=== PATIENT | male | born 1955 | race Caucasian/White ===

== ENCOUNTER 2017-06-06 20:57 | Inpatient (IN) | payer OTHER, SELFPAY ==
[2017-06-06 20:58] VITALS: BP 135/89; PULSE 127; RESP 18; TEMP 38.3; O2SAT 90; BMI 25.2
--- NOTE | 2017-06-06 21:02 | EKG12_ITS ---
Test Reason : CP Blood Pressure : / mmHG Vent. Rate : 123 BPM Atrial Rate : 123 BPM P-R Int : 120 ms QRS Dur : 070 ms QT Int : 296 ms P-R-T Axes : 084 071 057 degrees QTc Int : 423 ms Sinus tachycardia Otherwise normal ECG Confirmed by TAMIKO HART MD ([id number]), general expeditor MARIA T SAMPSON ([id number] on 06/09/2017 3:01:30 PM Referred By: FRANK Confirmed By:TAMIKO HART MD
--- NOTE | 2017-06-06 22:05 | RAD_ITS ---
STUDY: X-RAY CHEST REASON FOR EXAM: Male, 61 years old. Chest pain TECHNIQUE: Frontal views COMPARISON: March 21, 2016 FINDINGS: The lungs are expanded. Mild mixed interstitial/alveolar infiltrates bilaterally, right more than left Normal size heart. Normal mediastinum and arabella. Normal visualized pulmonary arteries. Normal visualized aortic arch and descending thoracic aorta. Mild degenerative changes of the thoracic spine. Normal visualized ribs, clavicles, and shoulders. There is no demonstrated abnormality of the visualized soft tissue structures of the upper abdomen. RAD/Chest 1 View (Portable) IMPRESSION: Mixed infiltrates bilaterally, right more than left. Electronically Signed: Chay Olea DO at 22:33 EST Tel [phone], Service support ,
[2017-06-06 22:07] VITALS: BP 117/88; PULSE 115; RESP 17; O2SAT 94; O2SAT 95
[2017-06-06 22:23] LABS: Absolute Lymphocyte Count 1.27 X10^3/ul (0.83-4.51); Basophil# 0.04 X10^3/uL; Basophil% 0.3 % (0-1); Differential Indicated SCAN CRITERIA MET; Eosinophil# 0.08 X10^3/uL; Eosinophils% 0.5 % (0-5); Hemoglobin 13.1 g/dl (13.0-16.5); Lymphocyte # 1.27 X10^3/ul (4.0); Lymphocyte % 8.3 % (19-41); Mean Corp Hgb Conc 32.8 g/gl (32-36); Mean Corpuscular Hgb 30.8 pg (27.0-32.0); Mean Corpuscular Volume 93.9 fL (80-94); Mean Platelet Vol. 8.7 fl (6.2-12.0); Monocyte# 1.79 X10^3/uL; Monocyte% 11.8 % (0-10); Neutrophil % 78.8 % (47-70); POSITIVE COUNT NO; POSITIVE DIFFERENTIAL YES; POSITIVE MORPHOLOGY NO; Platelet Count 379 K/mm3 (150-450); RBC Distribution Width CV 13.9 % (11.6-14.6); RBC Distribution Width SD 47.8 fl (35.1-43.9); Red Blood Count 4.26 M/mm3 (4.6-6.2); White Blood Count 15.2 K/mm3 (4.4-11.0)
[2017-06-06 22:40] VITALS: PULSE 118; RESP 20
[2017-06-06] MEDS: Ipratropium/Albuterol Sulfate 3 ML AMPUL.NEB INHALATION (22:40)
[2017-06-06 22:42] LABS: Anisocytosis RARE; Macrocytosis RARE; Platelet Estimate ADEQUATE (ADEQ)
[2017-06-06 22:46] LABS: BUN 12 mg/dL (7-18); BUN/Creat Ratio 14.2 RATIO (10-20); Calcium,Total 8.5 mg/dL (8.5-10.1); Creatinine, Serum 0.84 mg/dL (0.70-1.30); EST Glomerular Filtration Rate 98 mL/min (>60); Est Glom Filt Rate - Afr Amer 118 mL/min (>60); Estimated Creatinine Clearance 77.33 ml/min; Glucose 123 mg/dL (74-106)
[2017-06-06 22:47] LABS: Anion Gap 7 (5-15); Chloride 97 mmol/L (98-107); Potassium 3.2 mmol/L (3.5-5.1); Sodium Level 133 mmol/L (136-145)
[2017-06-06] MEDS: 0.9% Normal Saline 1,000 ML 999 ML IV (22:52)
[2017-06-06] MEDS: Acetaminophen 500 MG Tablet 1000 MG PO (22:52)
[2017-06-06] MEDS: MethylPREDNISolone 125 MG/2 ML Vial IV (22:55)
--- NOTE | 2017-06-06 23:06 | ED.DCSUM_ITS ---
- ER Visit Summary Date of Service: 06/06/17 Chief Complaint: Cough History of Present Illness: The patient is a [address] Lazarus Ribeiro. He reports that he is a cough began approximately 2 weeks ago. Is productive of green/yellow sputum without blood. He reports that he has had subjective fever, chills, and sweats. He reports that he has had mild shortness of breath that is relieved with things inhaler. Patient also reports that he has chest pain on the right side began 2 weeks ago. This is present only when he coughs. Is 3 out of 10 at worst and is pain- free currently. He reports this is similar to when he has had pneumonia in the past. He also has a history of COPD. He is not on home O2. Physical Examination: Vitals: Stable. Afebrile. General: Well-nourished and well-developed. Head: Normocephalic atraumatic. Neck: Supple, no lymphadenopathy. No JVD. Nontender. Cardiovascular: Tachycardic regular rhythm. No murmurs. Respiratory: No respiratory distress. Rhonchi on the right and greatly decreased air movement. Abdominal: Soft, nontender, nondistended, normal bowel sounds. No guarding, rebound, or peritoneal signs. Back: Nontender. Extremities: Nontender, no edema. Skin: Normal color, no rash. Neurologic: Alert and oriented ?3. Cranial nerves II through XII are intact. Normal strength and sensation. Psych: Normal affect. Test Results: EKG is sinus tach at [address] changes. Troponin is negative. CBC is marked for white count of 15.2 with 79 segmented neutrophils, 8 lymphocytes, 12 monocytes. Chem-7 is more for sodium 133, potassium 3.2, chloride 97, glucose of 123. Chest x-ray shows bilateral infiltrates right greater than left. Lactic acid is 1.2. Emergency Department Course and Treatment: Patient had blood cultures obtained. He was given Levaquin IV. He was given albuterol Atrovent aerosols. He was given Solu-Medrol IV. Treatment Plan: The patient was discussed with Dr. Ervin. He will be admitted to the hospital for further evaluation and treatment. Disposition: Admitted in improved condition. Impression: 1. Pneumonia, community-acquired. 2. COPD. 3. Sepsis. This note was generated with Dragon dictation software. It may contain incorrect words, spelling, and punctuation that were not noted in review of the chart prior to signing ED Disposition - Plan for ED Patient: Chief Complaint: Chest Pain
[2017-06-06 23:31] LABS: Lactic Acid 1.2 mmol/L (0.4-2.0)
[2017-06-07] VITALS (22 sets, daily range): BP systolic 117–135; BP diastolic 68–85; PULSE 81–104; RESP 14–30; TEMP 36.6–37.1; O2SAT 90–98; BMI 25.5; BMI 25.6
[2017-06-07] MEDS: 0.9% Normal Saline 1,000 ML 999 ML IV (00:16)
--- NOTE | 2017-06-07 00:20 | PCM.HP.STD ---
Problem List (1) Sepsis Status: Acute (2) Community acquired pneumonia Status: Acute (3) Mixed anxiety and depressive disorder Status: Chronic (4) Nicotine dependence Status: Chronic (5) COPD (chronic obstructive pulmonary disease) Status: Chronic History of Present Illness Date of Admission: 06/07/17 Chief Complaint: Cough, shortness of breath. The patient is a 61 year old M with past medical history as mentioned above presented to the emergency room because of cough and shortness of breath. His symptoms started approximately 2 weeks ago with productive cough with moderate amount of yellow to clear sputum, associated with shortness of breath and subjective fever and without aggravating or relieving factors. Over the last few days, he has been complaining of right side chest pain, sharp pain, comes on when he coughs, aggravated by laying on his right side and without relieving factors. He denied left-sided chest pain, palpitation, dizziness or lightheadedness. In the emergency room, he had a spike of fever, was tachycardic and tachypneic, blood pressure was stable. Pulse ox was 94% on 2 L of oxygen. His routine blood work was remarkable for leukocytosis, hyponatremia and hypokalemia. His EKG revealed normal sinus rhythm, normal [place] interval, normal QRS and normal QTC without evidence of acute ischemic changes. His troponin was negative. Lactic acid was normal. Chest x-ray revealed bilateral infiltrate, more on the right lung. He is being admitted for bilateral community-acquired pneumonia with sepsis as well as mild hyponatremia and hypokalemia. Past Medical History Past Medical History (Chronic Problems): Chronic Problems Mixed anxiety and depressive disorder (Chronic) Nicotine dependence (Chronic) COPD (chronic obstructive pulmonary disease) (Chronic) Allergies No Known Allergies Allergy (Verified 06/06/17 21:02) Home Medications: Ambulatory Orders Medication Instructions Recorded NK [NK] 06/06/17 Surgical History: arthroscopy, knee, herniorrhaphy, tonsillectomy, - Psychiatric History: Depression Lives: Spouse/ Significant Other Smoking Status: Former smoker Alcohol: None Drugs: None - *Family History Maternal History Items: No pertinent history Paternal History Items: No pertinent history Review of Systems Constitutional: Reports: Fever. Denies: Anorexia, Chills, Weakness Eyes: Denies: Blurred vision, Double vision, Drainage, Pain, Redness HEENT: Denies: Difficulty Hearing, Ear Pain, Eye Pain, Nasal Congestion, Sore Throat Cardiovascular: Reports: Chest Pain. Denies: Chest Pressure, Chest Tightness, Heaviness, Light Headedness, Orthopnea, Palpitations, Paroxysmal Noc. Dyspnea, Syncope Respiratory: Reports: Cough, Pleuritic Pain, Shortness of Breath, Sputum production. Denies: Hemoptysis, Wheezing Gastrointestinal: Denies: Abdominal Pain, Constipation, Diarrhea, Nausea, Vomiting Genitourinary: Denies: Dysuria, Frequency, Hematuria Musculoskeletal: Denies: Arm Pain, Back Pain, Foot Pain Skin: Denies: Dryness, Rash Neurological: Denies: Balance problems, Double vision, Change in Speech, Slurred speech, Focal weakness, Headaches, Incoordination Psychiatric: Reports: Depression. Denies: Anxiety Endocrine: Denies: Change in Body Habitus, Polydipsia VTE Information - Inpt Only VTE Present on Admission: No VTE Mechan Device Prophylaxis: None VTE Pharm Prophylaxis ordered?: Yes Patient Problems: Active and Suspected Problems Sepsis (Acute) Community acquired pneumonia (Acute) - Physical Exam General: Alert, Oriented x3, Cooperative, - - He is mildly short of breath. HEENT: Atraumatic, PERRLA, EOMI Oral: Moist Mucosa, No Gingival or Mucosal Lesions/ Ulcerations Neck: Supple, No JVD, Negative Carotid Bruits, Trachea Midline, Thyroid Normal Size and Texture Lungs: No wheeze, Diminished, Rhonchi, Short of Breath, - - Decreased breath sounds bilaterally, more at the bases, faint crackles. Cardiovascular: Regular rate, Regular Rhythm, Normal S1, Normal S2, PMI Normal, Tachycardic Abdomen: Bowel Sounds Present, Soft, Non Tender, Non-Distended, No Hepato-splenomegaly Extremities: No clubbing, No cyanosis, No edema Skin: No rashes, No breakdown Lymphatic: No Cervical, Supraclavicular, or Inguinal Adenopathy Neurological: Cranial nerves II-XII grossly intact, Motor Exam 5/5 strength throughout Psych/Mental Status: Normal Affect, Appropriate, Alert and oriented to time, place, person, mood and affect Vital Signs Temp Pulse Resp BP Pulse Ox 98.4 F 102 H 30 H 126/80 H 94 06/07/17 00:16 06/07/17 00:14 06/07/17 00:14 06/07/17 00:14 06/07/17 00:14 Oxygen Flow Rate (L/min) 2 Oxygen Delivery Method Nasal Cannula Microbiology 06/06/17 22:45 Influenza Types A,B Direct FA (NATALIA) - Final Mucosa - Nose Laboratory Tests 06/06/17 06/06/17 06/06/17 Range/Units 22:45 22:02 22:02 WBC 15.2 H (4.4-11.0) K/mm3 RBC 4.26 L (4.6-6.2) M/mm3 Hgb 13.1 (13.0-16.5) g/dl Hct 40.0 (40-54) % MCV 93.9 (80-94) fL MCH 30.8 (27.0-32.0) pg MCHC 32.8 (32-36) g/gl RDW 13.9 (11.6-14.6) % RDW Differential 47.8 H (35.1-43.9) fl Plt Count 379 (150-450) K/mm3 MPV 8.7 (6.2-12.0) fl Immature Gran % (Auto) 0.300 (0.0-0.9) % Neut % (Auto) 78.8 H (47-70) % Lymph % (Auto) 8.3 L (19-41) % Emanuel % (Auto) 11.8 H (0-10) % Eos % (Auto) 0.5 (0-5) % Baso % (Auto) 0.3 (0-1) % Absolute Neuts (auto) 12.0 H (2.0-7.7) X10^3/uL Absolute Lymphs (auto) 1.27 (0.83-4.51) X10^3/ul Total Counted Not Reportable Differential Comment SEE COMMENT Diff Path Review May foll Platelet Estimate ADEQUATE (ADEQ) Anisocytosis RARE Macrocytosis RARE Sodium 133 L (136-145) mmol/L Potassium 3.2 L (3.5-5.1) mmol/L Chloride 97 L (98-107) mmol/L Carbon Dioxide 29.0 (21.0-32.0) mmol/L Anion Gap 7 (5-15) BUN 12 (7-18) mg/dL Creatinine 0.84 (0.70-1.30) mg/dL Estim Creat Clear Calc 77.33 ml/min Est GFR (MDRD) Af Amer 118 (>60) mL/min Est GFR (MDRD) Non-Af 98 (>60) mL/min BUN/Creatinine Ratio 14.2 (10-20) RATIO Glucose 123 H (74-106) mg/dL Lactic Acid 1.2 (0.4-2.0) mmol/L Calcium 8.5 (8.5-10.1) mg/dL Troponin I < 0.02 (<0.06) ng/mL Clinical Impression(s) from Imaging Studies Chest X-Ray 06/06/17 22:05 IMPRESSION: Mixed infiltrates bilaterally, right more than left. Electronically Signed: Chay Olea DO at 22:33 EST Tel [phone], Service support , Assessment/Plan Active and Suspected Problems Sepsis (Acute) Community acquired pneumonia (Acute) This is a 61 years old male patient presented to the emergency room because of productive cough and shortness of breath as well as subjective fever and he was found to have bilateral infiltrate on chest x-ray consistent with bilateral community-acquired pneumonia with sepsis. #1 acute bilateral bacterial community-acquired pneumonia/sepsis: Chest x-ray reviewed. Lactic acid was normal. Plan: Admit to PCU, cardiac monitoring, blood culture, sputum culture, urinalysis, urine culture, pneumococcal and Legionella antigen, IV Levaquin for pneumonia, IV fluids, mucolytics, incentive spirometer, bronchodilators, Tylenol as needed. #2 hyponatremia/hypokalemia: Likely because of dehydration and infection. Plan to replace both sodium and potassium with IV fluids with normal saline and addition of potassium chloride, repeat BMP tomorrow morning. #3 COPD: DuoNeb every 6 hours, albuterol as needed, antitussives, oxygen by nasal cannula to keep O2 saturation more than 92%. #4 anxiety/depression: Stable, not on medications at this time. #5 DVT prophylaxis: Subcu Lovenox. This note was generated with [employer] software. It may contain incorrect words, spelling, and punctuation that were not noted in checking the note before signing. Code Visit Inpatient E&M: 82012 Init Hosp L3
--- NOTE | 2017-06-07 00:26 | HP.PCM_ITS ---
Problem List (1) Sepsis Status: Acute (2) Community acquired pneumonia Status: Acute (3) Mixed anxiety and depressive disorder Status: Chronic (4) Nicotine dependence Status: Chronic (5) COPD (chronic obstructive pulmonary disease) Status: Chronic History of Present Illness Date of Admission: 06/07/17 Chief Complaint: Cough, shortness of breath. The patient is a 61 year old M with past medical history as mentioned above presented to the emergency room because of cough and shortness of breath. His symptoms started approximately 2 weeks ago with productive cough with moderate amount of yellow to clear sputum, associated with shortness of breath and subjective fever and without aggravating or relieving factors. Over the last few days, he has been complaining of right side chest pain, sharp pain, comes on when he coughs, aggravated by laying on his right side and without relieving factors. He denied left-sided chest pain, palpitation, dizziness or lightheadedness. In the emergency room, he had a spike of fever, was tachycardic and tachypneic, blood pressure was stable. Pulse ox was 94% on 2 L of oxygen. His routine blood work was remarkable for leukocytosis, hyponatremia and hypokalemia. His EKG revealed normal sinus rhythm, normal [place] interval, normal QRS and normal QTC without evidence of acute ischemic changes. His troponin was negative. Lactic acid was normal. Chest x-ray revealed bilateral infiltrate, more on the right lung. He is being admitted for bilateral community-acquired pneumonia with sepsis as well as mild hyponatremia and hypokalemia. Past Medical History Past Medical History (Chronic Problems): Chronic Problems Mixed anxiety and depressive disorder (Chronic) Nicotine dependence (Chronic) COPD (chronic obstructive pulmonary disease) (Chronic) Allergies No Known Allergies Allergy (Verified 06/06/17 21:02) Home Medications: Ambulatory Orders Medication Instructions Recorded NK [NK] 06/06/17 Surgical History: arthroscopy, knee, herniorrhaphy, tonsillectomy, - Psychiatric History: Depression Lives: Spouse/ Significant Other Smoking Status: Former smoker Alcohol: None Drugs: None - *Family History Maternal History Items: No pertinent history Paternal History Items: No pertinent history Review of Systems Constitutional: Reports: Fever. Denies: Anorexia, Chills, Weakness Eyes: Denies: Blurred vision, Double vision, Drainage, Pain, Redness HEENT: Denies: Difficulty Hearing, Ear Pain, Eye Pain, Nasal Congestion, Sore Throat Cardiovascular: Reports: Chest Pain. Denies: Chest Pressure, Chest Tightness, Heaviness, Light Headedness, Orthopnea, Palpitations, Paroxysmal Noc. Dyspnea, Syncope Respiratory: Reports: Cough, Pleuritic Pain, Shortness of Breath, Sputum production. Denies: Hemoptysis, Wheezing Gastrointestinal: Denies: Abdominal Pain, Constipation, Diarrhea, Nausea, Vomiting Genitourinary: Denies: Dysuria, Frequency, Hematuria Musculoskeletal: Denies: Arm Pain, Back Pain, Foot Pain Skin: Denies: Dryness, Rash Neurological: Denies: Balance problems, Double vision, Change in Speech, Slurred speech, Focal weakness, Headaches, Incoordination Psychiatric: Reports: Depression. Denies: Anxiety Endocrine: Denies: Change in Body Habitus, Polydipsia VTE Information - Inpt Only VTE Present on Admission: No VTE Mechan Device Prophylaxis: None VTE Pharm Prophylaxis ordered?: Yes Patient Problems: Active and Suspected Problems Sepsis (Acute) Community acquired pneumonia (Acute) - Physical Exam General: Alert, Oriented x3, Cooperative, - - He is mildly short of breath. HEENT: Atraumatic, PERRLA, EOMI Oral: Moist Mucosa, No Gingival or Mucosal Lesions/ Ulcerations Neck: Supple, No JVD, Negative Carotid Bruits, Trachea Midline, Thyroid Normal Size and Texture Lungs: No wheeze, Diminished, Rhonchi, Short of Breath, - - Decreased breath sounds bilaterally, more at the bases, faint crackles. Cardiovascular: Regular rate, Regular Rhythm, Normal S1, Normal S2, PMI Normal, Tachycardic Abdomen: Bowel Sounds Present, Soft, Non Tender, Non-Distended, No Hepato- splenomegaly Extremities: No clubbing, No cyanosis, No edema Skin: No rashes, No breakdown Lymphatic: No Cervical, Supraclavicular, or Inguinal Adenopathy Neurological: Cranial nerves II-XII grossly intact, Motor Exam 5/5 strength throughout Psych/Mental Status: Normal Affect, Appropriate, Alert and oriented to time, place, person, mood and affect Vital Signs Temp Pulse Resp BP Pulse Ox 98.4 F 102 H 30 H 126/80 H 94 06/07/17 00:16 06/07/17 00:14 06/07/17 00:14 06/07/17 00:14 06/07/17 00:14 Oxygen Flow Rate (L/min) 2 Oxygen Delivery Method Nasal Cannula Microbiology 06/06/17 22:45 Influenza Types A,B Direct FA (NATALIA) - Final Mucosa - Nose Laboratory Tests 3 06/06/17 06/06/17 06/06/17 Range/Units 22:45 22:02 22:02 WBC 15.2 H (4.4-11.0) K/mm3 RBC 4.26 L (4.6-6.2) M/mm3 Hgb 13.1 (13.0-16.5) g/dl Hct 40.0 (40-54) % MCV 93.9 (80-94) fL MCH 30.8 (27.0-32.0) pg MCHC 32.8 (32-36) g/gl RDW 13.9 (11.6-14.6) % RDW Differential 47.8 H (35.1-43.9) fl Plt Count 379 (150-450) K/mm3 MPV 8.7 (6.2-12.0) fl Immature Gran % (Auto) 0.300 (0.0-0.9) % Neut % (Auto) 78.8 H (47-70) % Lymph % (Auto) 8.3 L (19-41) % [place] % (Auto) 11.8 H (0-10) % Eos % (Auto) 0.5 (0-5) % Baso % (Auto) 0.3 (0-1) % Absolute Neuts (auto) 12.0 H (2.0-7.7) X10^3/uL Absolute Lymphs (auto) 1.27 (0.83-4.51) X10^3/ul Total Counted Not Reportable Differential Comment SEE COMMENT Diff Path Review May foll Platelet Estimate ADEQUATE (ADEQ) Anisocytosis RARE Macrocytosis RARE Sodium 133 L (136-145) mmol/L Potassium 3.2 L (3.5-5.1) mmol/L Chloride 97 L (98-107) mmol/L Carbon Dioxide 29.0 (21.0-32.0) mmol/L Anion Gap 7 (5-15) BUN 12 (7-18) mg/dL Creatinine 0.84 (0.70-1.30) mg/dL Estim Creat Clear Calc 77.33 ml/min Est GFR (MDRD) Af Amer 118 (>60) mL/min Est GFR (MDRD) Non-Af 98 (>60) mL/min BUN/Creatinine Ratio 14.2 (10-20) RATIO Glucose 123 H (74-106) mg/dL Lactic Acid 1.2 (0.4-2.0) mmol/L Calcium 8.5 (8.5-10.1) mg/dL Troponin I < 0.02 (<0.06) ng/mL Clinical Impression(s) from Imaging Studies Chest X-Ray 06/06/17 22:05 IMPRESSION: Mixed infiltrates bilaterally, right more than left. Electronically Signed: Chay Olea DO at 22:33 EST Tel [phone], Service support , Assessment/Plan Active and Suspected Problems Sepsis (Acute) Community acquired pneumonia (Acute) This is a 61 years old male patient presented to the emergency room because of productive cough and shortness of breath as well as subjective fever and he was found to have bilateral infiltrate on chest x-ray consistent with bilateral community-acquired pneumonia with sepsis. #1 acute bilateral bacterial community-acquired pneumonia/sepsis: Chest x-ray reviewed. Lactic acid was normal. Plan: Admit to PCU, cardiac monitoring, blood culture, sputum culture, urinalysis, urine culture, pneumococcal and Legionella antigen, IV Levaquin for pneumonia, IV fluids, mucolytics, incentive spirometer, bronchodilators, Tylenol as needed. #2 hyponatremia/hypokalemia: Likely because of dehydration and infection. Plan to replace both sodium and potassium with IV fluids with normal saline and addition of potassium chloride, repeat BMP tomorrow morning. #3 COPD: DuoNeb every 6 hours, albuterol as needed, antitussives, oxygen by nasal cannula to keep O2 saturation more than 92%. #4 anxiety/depression: Stable, not on medications at this time. #5 DVT prophylaxis: Subcu Lovenox. This note was generated with [employer] software. It may contain incorrect words, spelling, and punctuation that were not noted in checking the note before signing. Code Visit Inpatient E&M: 07025 Init Hosp L3
[2017-06-07 02:38] LABS: Anion Gap 9 (5-15); BUN 12 mg/dL (7-18); BUN/Creat Ratio 15.5 RATIO (10-20); Calcium,Total 7.9 mg/dL (8.5-10.1); Chloride 101 mmol/L (98-107); Creatinine, Serum 0.78 mg/dL (0.70-1.30); EST Glomerular Filtration Rate 108 mL/min (>60); Est Glom Filt Rate - Afr Amer 131 mL/min (>60); Estimated Creatinine Clearance 80.04 ml/min; Glucose 163 mg/dL (74-106); Potassium 3.2 mmol/L (3.5-5.1); Sodium Level 137 mmol/L (136-145)
[2017-06-07 02:45] LABS: Absolute Lymphocyte Count 0.54 X10^3/ul (0.83-4.51); Absolute Neutrophil Count 13.3 X10^3/uL (2.0-7.7); Basophil# 0.04 X10^3/uL; Basophil% 0.3 % (0-1); Eosinophil# 0.01 X10^3/uL; Eosinophils% 0.1 % (0-5); Hematocrit 38.8 % (40-54); Hemoglobin 12.9 g/dl (13.0-16.5); Lymphocyte # 0.54 X10^3/ul (4.0); Lymphocyte % 3.8 % (19-41); Mean Corp Hgb Conc 33.2 g/gl (32-36); Mean Corpuscular Hgb 31.4 pg (27.0-32.0); Mean Corpuscular Volume 94.4 fL (80-94); Mean Platelet Vol. 8.5 fl (6.2-12.0); Monocyte# 0.41 X10^3/uL; Monocyte% 2.9 % (0-10); Neutrophil # 13.27 X10^3/uL (2.7-7.7); Neutrophil % 92.6 % (47-70); Platelet Count 389 K/mm3 (150-450); RBC Distribution Width CV 13.8 % (11.6-14.6); RBC Distribution Width SD 46.4 fl (35.1-43.9); Red Blood Count 4.11 M/mm3 (4.6-6.2); White Blood Count 14.3 K/mm3 (4.4-11.0)
[2017-06-07 02:52] LABS: Differential Indicated SCAN CRITERIA MET; POSITIVE COUNT NO; POSITIVE DIFFERENTIAL YES; POSITIVE MORPHOLOGY YES
[2017-06-07 03:50] LABS: Color, Urine Yellow (Yellow); Glucose, Dipstick Normal (Normal); Ketone-Dipstick 5 mg/dl (Negative); Leukocyte Esterase-Dipstick 500 /ul (Negative); Nitrite-Dipstick Negative (Negative); Occult Blood-Urine 25 /ul (Negative); Protein-Dipstick 30 mg/dl (Negative); Urine Bilirubin Dipstick Negative (Negative); Urine Clarity Sl. Cloudy (Clear); Urine Urobilinogen 1 mg/dl (Normal)
[2017-06-07 03:54] LABS: Atypical Lymphocyte RARE %; Differential Comment SCANNED
[2017-06-07] MEDS: Ipratropium/Albuterol Sulfate 3 ML AMPUL.NEB INHALATION ×3 (06:55→18:55)
[2017-06-07] MEDS: guaiFENesin 1,200 MG Tablet 1200 MG PO ×2 (09:36→22:11)
--- NOTE | 2017-06-07 15:29 | PCM.PN.HOSP ---
Patient Problems: Active and Suspected Problems Sepsis (Acute) Community acquired pneumonia (Acute) Subjective: Patient was seen and examined. Denies fever or chills or SOB. No acute events overnight. Objective: Physical Exam General: Alert, Oriented x3, Cooperative, no distress HEENT: Atraumatic, PERRLA, EOMI Oral: Moist Mucosa, No Gingival or Mucosal Lesions/ Ulcerations Neck: Supple, No JVD, Negative Carotid Bruits, Trachea Midline, Thyroid Normal Size and Texture Lungs: No wheeze, Diminished, Rhonchi, Short of Breath, - Decreased breath sounds bilaterally, more at the bases, faint crackles. Cardiovascular: Regular rate, Regular Rhythm, Normal S1, Normal S2, PMI Normal, Tachycardic Abdomen: Bowel Sounds Present, Soft, Non Tender, Non-Distended, No Hepato-splenomegaly Extremities: No edema Skin: No rashes, No breakdown Lymphatic: No Cervical, Supraclavicular, or Inguinal Adenopathy Neurological: Cranial nerves II-XII grossly intact, Motor Exam 5/5 strength throughout Psych/Mental Status: Normal Affect, Appropriate, Alert and oriented to time, place, person, mood and affect Vitals/I&O's: Vital Signs Temp Pulse Resp BP Pulse Ox 98.8 F 98 16 119/68 95 06/07/17 09:36 06/07/17 15:01 06/07/17 12:50 06/07/17 09:36 06/07/17 09:36 Oxygen Flow Rate (L/min) 2 Oxygen Delivery Method Room Air Weight: 65.5 kg Body Mass Index (BMI) 25.5 Intake and Output for Last 24 Hours 06/05/17 06/06/17 06/07/17 23:59 23:59 23:59 Intake Total 1326 / 1326 Balance 1326 / 1326 Microbiology Past 72 Hours 06/07/17 02:43 Urine, Clean Catch Urine Culture - Preliminary Culture exhibits no growth. 06/07/17 02:43 Interface Orders Streptococcus pneumoniae Antigen (M - Final 06/07/17 02:43 Interface Orders Legionella Antigen - Final Laboratory Results 06/07/17 01:48: Sodium 137, Potassium 3.2 L, Chloride 101, Carbon Dioxide 27.0, Anion Gap 9, BUN 12, Creatinine 0.78, Estim Creat Clear Calc 80.04, Est GFR (MDRD) Af Amer 131, Est GFR (MDRD) Non-Af 108, BUN/Creatinine Ratio 15.5, Glucose 163 H, Calcium 7.9 L 06/07/17 01:48: WBC 14.3 H, RBC 4.11 L, Hgb 12.9 L, Hct 38.8 L, MCV 94.4 H, MCH 31.4, MCHC 33.2, RDW 13.8, RDW Differential 46.4 H, Plt Count 389, MPV 8.5, Immature Gran % (Auto) 0.300, Neut % (Auto) 92.6 H, Lymph % (Auto) 3.8 L, Clarke % (Auto) 2.9, Eos % (Auto) 0.1, Baso % (Auto) 0.3, Absolute Neuts (auto) 13.3 H, Absolute Lymphs (auto) 0.54 L, Total Counted Not Reportable, Differential Comment SCANNED, Atypical Lymphocytes RARE 06/07/17 01:48: Troponin I < 0.02 06/07/17 02:43: Urine Color Yellow, Urine Clarity Sl. Cloudy, Urine pH 6.0, Ur Specific [place] 1.020, Urine Protein 30 H, Urine Glucose (UA) Normal, Urine Ketones 5 H, Urine Occult Blood 25 H, Urine Nitrite Negative, Urine Bilirubin Negative, Urine Urobilinogen 1 H, Ur Leukocyte Esterase 500 H 06/07/17 05:35: Troponin I < 0.02 06/07/17 12:02: Troponin I < 0.02 Current Medications Acetaminophen (Tylenol) 650 mg PO Q6H PRN PRN PRN Reason: FEVER Albuterol Sulfate (Ventolin Aerosols) 2.5 mg INHALATION Q2H PRN PRN PRN Reason: SHORTNESS OF BREATH Albuterol/Ipratropium (Duoneb) 3 ml INHALATION Q6H.RT [facility] Last Admin: 06/07/17 12:50 Dose: 3 ml Enoxaparin Sodium (Lovenox) 40 mg SC DAILY@1000 [facility] Last Admin: 06/07/17 09:36 Dose: Not Given Guaifenesin (Mucinex) 1,200 mg PO BID [facility] Last Admin: 06/07/17 09:36 Dose: 1,200 mg Potassium Chloride/Sodium Chloride () 1,000 mls @ 100 mls/hr IV .Q10H [facility] Last Admin: 06/07/17 11:22 Dose: 100 mls/hr Levofloxacin (Levaquin) 750 mg in 150 mls @ 100 mls/hr IV Q24 [facility] Last Admin: 06/07/17 09:35 Dose: 100 mls/hr Magnesium Hydroxide (Milk Of Magnesia) 30 ml PO DAILY PRN PRN PRN Reason: Constipation Ondansetron HCl (Zofran) 4 mg IV Q8H PRN PRN PRN Reason: NAUSEA Sodium Chloride () 5 - 30 ml IV UD PRN PRN Reason: SALINE FLUSH Assessment/Plan Active and Suspected Problems Sepsis (Acute) Community acquired pneumonia (Acute) 61 years old male patient admitted with productive cough, shortness of breath, fever and found to have bilateral infiltrate on chest x-ray consistent with bilateral community-acquired pneumonia with sepsis. 1. Sepsis secondary to acute bilateral bacterial community-acquired pneumonia, improved, continue on IV Levaquin ncentive spirometer, bronchodilators, Tylenol as needed. 2. Acute hyponatremia secondary to fluid shifts, resolved. 3. Hypokalemia, replaced, recheck in am. 4. COPD, no signs of acute exacerbation 5. Anxiety/depression: Stable, 6. DVT prophylaxis -Lovenox SC. Code Visit Inpatient E&M: 90419 Subs Hosp L2
--- NOTE | 2017-06-07 15:36 | PN_ITS ---
Patient Problems: Active and Suspected Problems Sepsis (Acute) Community acquired pneumonia (Acute) Subjective: Patient was seen and examined. Denies fever or chills or SOB. No acute events overnight. Objective: Physical Exam General: Alert, Oriented x3, Cooperative, no distress HEENT: Atraumatic, PERRLA, EOMI Oral: Moist Mucosa, No Gingival or Mucosal Lesions/ Ulcerations Neck: Supple, No JVD, Negative Carotid Bruits, Trachea Midline, Thyroid Normal Size and Texture Lungs: No wheeze, Diminished, Rhonchi, Short of Breath, - Decreased breath sounds bilaterally, more at the bases, faint crackles. Cardiovascular: Regular rate, Regular Rhythm, Normal S1, Normal S2, PMI Normal, Tachycardic Abdomen: Bowel Sounds Present, Soft, Non Tender, Non-Distended, No Hepato- splenomegaly Extremities: No edema Skin: No rashes, No breakdown Lymphatic: No Cervical, Supraclavicular, or Inguinal Adenopathy Neurological: Cranial nerves II-XII grossly intact, Motor Exam 5/5 strength throughout Psych/Mental Status: Normal Affect, Appropriate, Alert and oriented to time, place, person, mood and affect Vitals/I&O's: Vital Signs Temp Pulse Resp BP Pulse Ox 98.8 F 98 16 119/68 95 06/07/17 09:36 06/07/17 15:01 06/07/17 12:50 06/07/17 09:36 06/07/17 09:36 Oxygen Flow Rate (L/min) 2 Oxygen Delivery Method Room Air Weight: 65.5 kg Body Mass Index (BMI) 25.5 Intake and Output for Last 24 Hours 06/05/17 06/06/17 06/07/17 23:59 23:59 23:59 Intake Total 1326 / 1326 Balance 1326 / 1326 Microbiology Past 72 Hours 06/07/17 02:43 Urine, Clean Catch Urine Culture - Preliminary Culture exhibits no growth. 06/07/17 02:43 Interface Orders Streptococcus pneumoniae Antigen (M - Final 06/07/17 02:43 Interface Orders Legionella Antigen - Final Laboratory Results 06/07/17 01:48: Sodium 137, Potassium 3.2 L, Chloride 101, Carbon Dioxide 27.0, Anion Gap 9, BUN 12, Creatinine 0.78, Estim Creat Clear Calc 80.04, Est GFR ( MDRD) Af Amer 131, Est GFR (MDRD) Non-Af 108, BUN/Creatinine Ratio 15.5, Glucose 163 H, Calcium 7.9 L 06/07/17 01:48: WBC 14.3 H, RBC 4.11 L, Hgb 12.9 L, Hct 38.8 L, MCV 94.4 H, MCH 31.4, MCHC 33.2, RDW 13.8, RDW Differential 46.4 H, Plt Count 389, MPV 8.5, Immature Gran % (Auto) 0.300, Neut % (Auto) 92.6 H, Lymph % (Auto) 3.8 L, [place] % (Auto) 2.9, Eos % (Auto) 0.1, Baso % (Auto) 0.3, Absolute Neuts (auto) 13.3 H , Absolute Lymphs (auto) 0.54 L, Total Counted Not Reportable, Differential Comment SCANNED, Atypical Lymphocytes RARE 06/07/17 01:48: Troponin I < 0.02 06/07/17 02:43: Urine Color Yellow, Urine Clarity Sl. Cloudy, Urine pH 6.0, Ur Specific Spencer 1.020, Urine Protein 30 H, Urine Glucose (UA) Normal, Urine Ketones 5 H, Urine Occult Blood 25 H, Urine Nitrite Negative, Urine Bilirubin Negative, Urine Urobilinogen 1 H, Ur Leukocyte Esterase 500 H 06/07/17 05:35: Troponin I < 0.02 06/07/17 12:02: Troponin I < 0.02 Current Medications Acetaminophen (Tylenol) 650 mg PO Q6H PRN PRN PRN Reason: FEVER Albuterol Sulfate (Ventolin Aerosols) 2.5 mg INHALATION Q2H PRN PRN PRN Reason: SHORTNESS OF BREATH Albuterol/Ipratropium (Duoneb) 3 ml INHALATION Q6H.RT [facility] Last Admin: 06/07/17 12:50 Dose: 3 ml Enoxaparin Sodium (Lovenox) 40 mg SC DAILY@1000 [facility] Last Admin: 06/07/17 09:36 Dose: Not Given Guaifenesin (Mucinex) 1,200 mg PO BID [facility] Last Admin: 06/07/17 09:36 Dose: 1,200 mg Potassium Chloride/Sodium Chloride () 1,000 mls @ 100 mls/hr IV .Q10H [facility] Last Admin: 06/07/17 11:22 Dose: 100 mls/hr Levofloxacin (Levaquin) 750 mg in 150 mls @ 100 mls/hr IV Q24 [facility] Last Admin: 06/07/17 09:35 Dose: 100 mls/hr Magnesium Hydroxide (Milk Of Magnesia) 30 ml PO DAILY PRN PRN PRN Reason: Constipation Ondansetron HCl (Zofran) 4 mg IV Q8H PRN PRN PRN Reason: NAUSEA Sodium Chloride () 5 - 30 ml IV UD PRN PRN Reason: SALINE FLUSH Assessment/Plan Active and Suspected Problems Sepsis (Acute) Community acquired pneumonia (Acute) 61 years old male patient admitted with productive cough, shortness of breath, fever and found to have bilateral infiltrate on chest x-ray consistent with bilateral community-acquired pneumonia with sepsis. 1. Sepsis secondary to acute bilateral bacterial community-acquired pneumonia, improved, continue on IV Levaquin ncentive spirometer, bronchodilators, Tylenol as needed. 2. Acute hyponatremia secondary to fluid shifts, resolved. 3. Hypokalemia, replaced, recheck in am. 4. COPD, no signs of acute exacerbation 5. Anxiety/depression: Stable, 6. DVT prophylaxis -Lovenox SC. Code Visit Inpatient E&M: 70527 Subs Hosp L2
--- NOTE | 2017-06-07 16:16 | CASEMGMT ---
Face to Face with patient for initial transition planning/care coordination assessment. REMA AKHTAR introduced self and role at [facility], pt voices understanding and consents to assessment at this time. Pt sitting up in bed in no distress at this time. Pt A/O x4 at this time and answers all questions appropriately at this time. Care providers, pharmacy, and demographics verified. See attached link. Pt voices no further concerns/needs at this time. Advised pt to ask for CM if any further questions/concerns/needs arise, voices understanding. PLAN: [place] REMA AKHTAR
[2017-06-08] VITALS (8 sets, daily range): BP systolic 120–125; BP diastolic 70–78; PULSE 89–110; RESP 16–20; TEMP 36.3–36.4; O2SAT 94–97
[2017-06-08] MEDS: Ipratropium/Albuterol Sulfate 3 ML AMPUL.NEB INHALATION ×2 (00:22→06:53)
[2017-06-08 09:13] LABS: Pathologist Review Reviewed
[2017-06-08] MEDS: guaiFENesin 1,200 MG Tablet 1200 MG PO (10:15)
--- NOTE | 2017-06-08 10:59 | PCM.DC ---
- Discharge Diagnoses Current Active Problems: Current Active and Chronic Problems Sepsis (Acute) Community acquired pneumonia (Acute) Reason(s) for Visit for Discharge Instructions: Cough, Shortness of breath You will use the following diet at home:: Regular Your food should be the consistency of: Regular Your liquids should be the consistency of: Regular/Thin Discharge Activity: Return to Normal Activity Allergies/Adverse Reactions: Allergies No Known Allergies Allergy (Verified 06/06/17 21:02) Medications to take at Discharge Guaifenesin [Mucinex] 1,200 mg PO BID #14 tab 06/08/17 Levofloxacin [Levaquin] 750 mg PO DAILY #5 tab 06/08/17 The following prescriptions were given: Levofloxacin [Levaquin] 750 mg PO DAILY #5 tab Guaifenesin [Mucinex] 1,200 mg PO BID #14 tab Primary Care Physician: Lazarus Ribeiro MD [Primary Care Provider] - Please follow up with your Primary Care Physician in: within 2 weeks Proposed Discharge Date: 06/08/17
--- NOTE | 2017-06-08 11:02 | DS.PCM_ITS ---
Discharge Date and Diagnosis Date of Admission: 06/07/17 Date of Discharge: 06/08/17 - Primary Discharge Diagnosis Active and Suspected Problems Sepsis (Acute) Community acquired pneumonia (Acute) - Secondary Discharge Diagnosis Chronic Problems Mixed anxiety and depressive disorder (Chronic) Nicotine dependence (Chronic) COPD (chronic obstructive pulmonary disease) (Chronic) Hospital Course and Treatment Imaging Results: Clinical Impression(s) from Imaging Studies Chest X-Ray 06/06/17 22:05 IMPRESSION: Mixed infiltrates bilaterally, right more than left. Electronically Signed: Chay Olea DO at 22:33 EST Tel [phone], Service support , None Operations: None Procedures: None Summary of Care Provided: 61 years old male patient with chronic nicotine use disorder admitted with productive cough, shortness of breath, fever and found to have bilateral infiltrate on chest x-ray consistent with bilateral community-acquired pneumonia with sepsis. Active management was as follows: 1. Sepsis secondary to acute bilateral bacterial community-acquired pneumonia, managed on IV Levaquin, discharged on po levaquin to complete 1 week 2. Acute hyponatremia secondary to fluid shifts, resolved. 3. Hypokalemia, resolved 4. COPD, stable , no exacerbation seen in the admission 5. Anxiety/depression Discharge Diet: No Restrictions Discharge Activity: Return to Normal Activity Home Medications: Medications to take at Discharge Guaifenesin [Mucinex] 1,200 mg PO BID #14 tab 06/08/17 Levofloxacin [Levaquin] 750 mg PO DAILY #5 tab 06/08/17 Following Prescrptions Were Given to Patient: Levofloxacin [Levaquin] 750 mg PO DAILY #5 tab Guaifenesin [Mucinex] 1,200 mg PO BID #14 tab Primary Care Physician: Lazarus Ribeiro MD [Primary Care Provider] - Please follow up with your Primary Care Physician in: within 2 weeks Disposition: Home Minutes spent on discharge:: 25 Patient Condition:: Stable Meaningful Use Info Meaningful Use Diagnoses (Choose all that apply): None applicable Code Visit Inpatient E&M: 84241 Disch Hosp
[2017-06-08 11:42] LABS: Absolute Lymphocyte Count 2.13 X10^3/ul (0.83-4.51); Absolute Neutrophil Count 14.1 X10^3/uL (2.0-7.7); Basophil# 0.15 X10^3/uL; Basophil% 0.8 % (0-1); Eosinophil# 0.02 X10^3/uL; Eosinophils% 0.1 % (0-5); Hematocrit 37.6 % (40-54); Lymphocyte # 2.13 X10^3/ul (4.0); Mean Corp Hgb Conc 31.9 g/gl (32-36); Mean Corpuscular Volume 97.2 fL (80-94); Mean Platelet Vol. 8.5 fl (6.2-12.0); Monocyte# 1.32 X10^3/uL; Monocyte% 7.4 % (0-10); Neutrophil # 14.06 X10^3/uL (2.7-7.7); Neutrophil % 79.2 % (47-70); Platelet Count 456 K/mm3 (150-450); RBC Distribution Width CV 14.4 % (11.6-14.6); RBC Distribution Width SD 49.5 fl (35.1-43.9); Red Blood Count 3.87 M/mm3 (4.6-6.2); White Blood Count 17.8 K/mm3 (4.4-11.0)
[2017-06-08 11:45] LABS: Differential Indicated SCAN CRITERIA MET; POSITIVE COUNT NO; POSITIVE DIFFERENTIAL NO; POSITIVE MORPHOLOGY YES
[2017-06-08 11:50] LABS: BUN 11 mg/dL (7-18); Estimated Creatinine Clearance 89.19 ml/min; Glucose 112 mg/dL (74-106)
[2017-06-08 11:51] LABS: Anion Gap 6 (5-15); BUN/Creat Ratio 15.6 RATIO (10-20); Calcium,Total 8.5 mg/dL (8.5-10.1); Chloride 109 mmol/L (98-107); EST Glomerular Filtration Rate 121 mL/min (>60); Est Glom Filt Rate - Afr Amer 146 mL/min (>60); Potassium 4.6 mmol/L (3.5-5.1); Sodium Level 143 mmol/L (136-145)
[2017-06-08 14:05] LABS: Differential Comment SCANNED
== END 2017-06-08 12:39 | disposition home or self-care (01) | DRG 871 ==
LOC: ED 22:27 → PCU 23:58
PROVIDERS: Admitting Provider Hospitalist; Emergency Provider Emergency Medicine; Family Provider Family Medicine; PCP Family Medicine; Visit Provider Internal Medicine
DX: A41.9 Sepsis, unspecified organism (principal); J15.9 Unspecified bacterial pneumonia; E87.1 Hypo-osmolality and hyponatremia; J44.0 Chronic obstructive pulmonary disease with (acute) lower respiratory infection; E87.6 Hypokalemia; F32.9 Major depressive disorder, single episode, unspecified; F41.9 Anxiety disorder, unspecified; Z87.891 Personal history of nicotine dependence
CPT/HCPCS: 36415; 71045; 80048; 81002; 83605; 84484; 85025; 87040; 87086; 87449; 87804; 93005; 94640; 99285; J7030; A4216